=== PATIENT | female | born 2005 | race Caucasian/White ===

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

== ENCOUNTER → 2023-03-22 | Outpatient (CLI) | payer MEDICAID ==
[~2023-03-22] MED LIST changes: +MACROBID100 M1 PO
[2023-03-22 12:28] LABS: BASO # 0.1 10*3/uL (0.0-0.1); BASO % 1.1 % (0.0-1.0); EOS # 0.1 10*3/uL (0.0-0.4); EOS % 1.1 % (1.0-4.0); HEMATOCRIT 39.5 % (37.0-47.0); LYMPH # 1.7 10*3/uL (1.3-4.4); LYMPH % 35.2 % (27.0-41.0); MEAN CELL VOLUME 87.6 fl (81.0-99.0); MEAN CORPUSCULAR HGB CONC 33.2 g/dl (33.0-37.0); MEAN PLATELET VOLUME 9.5 fl (9.6-12.3); MONO # 0.3 10*3/uL (0.1-1.0); NEUT # 2.6 10*3/uL (2.3-7.9); NEUT % 55.4 % (47.0-73.0); PLATELET COUNT AUTOMATED 254 10*3/uL (130-400); RED BLOOD COUNT 4.51 10*6/uL (4.10-5.10); RED CELL DISTRI WIDTH 12.5 % (0-14.5); WHITE BLOOD COUNT 4.7 10*3/uL (4.8-10.8)
[2023-03-22 12:52] LABS: ALKALINE PHOSPHATASE 76 U/L (46-116); BUN 7 mg/dl (9-23); CHLORIDE 107 mmol/L (98-107); POTASSIUM 3.7 mmol/L (3.4-5.1); SGPT/ALT 8 U/L (10-49); TOTAL PROTEIN 7.3 gm/dL (6.0-8.0)
== END | disposition home or self-care (01) ==
LOC: LAB 11:55
PROVIDERS: ATTEND Nurse Practitioner
DX: F41.9 Anxiety disorder, unspecified (principal); L65.9 Nonscarring hair loss, unspecified

== ENCOUNTER 2025-05-15 20:26 | Emergency (ER) | payer BC ==
[~2025-05-15] VITALS: Ht 160 cm; Wt 59.0 kg
[2025-05-15] MEDS ORDERED: LEVOTHYROXINE50 MCG PO (20:43)
[2025-05-15] MEDS ORDERED: SPRINTEC 28 DA1 EAC1 PO (20:44)
[2025-05-15] MEDS ORDERED: MAGNESIUM CITRATE 296 ML BOT PO ONE (23:20)
== END 2025-05-15 23:29 | disposition home or self-care (01) ==
LOC: ED 20:26
DX: K59.00 Constipation, unspecified (principal); E03.9 Hypothyroidism, unspecified; F41.9 Anxiety disorder, unspecified; Z79.899 Other long term (current) drug therapy

== ENCOUNTER 2025-07-22 22:56 | Emergency (ER) | payer BC ==
[~2025-07-22] VITALS: Ht 160 cm; Wt 54.4 kg
[~2025-07-22 22:56] MED LIST changes: +LEVOTHYROXINE50 MCG PO; +SPRINTEC 28 DA1 EAC1 PO
[2025-07-22 23:44] LABS: BILIRUBIN Negative (Negative); BLOOD 3+ (Negative); CLARITY Cloudy (Clear); COLOR Yellow (Yellow); KETONE Trace (Negative); LEUKO ESTERASE 2+ (Negative); NITRITE Negative (Negative); PH 5.5 (4.5-8.0); SPECIFIC GRAVITY 1.020 (1.001-1.030); UROBILINOGEN 1.0 E.U./dl (0.0-1.0)
[2025-07-22 23:52] LABS: BACTERIA 2+; EPITHELIAL CELLS 21-30; RBC 16-20 rbc/hpf (0-2); WBC 21-30 wbc/hpf (0-5)
[2025-07-23] MEDS ORDERED: AZITHROMYCIN 250 MG TAB PO ONE (00:30)
[2025-07-23] MEDS ORDERED: Water, Sterile 10 ML VIAL ONE (01:03)
== END 2025-07-23 01:04 | disposition home or self-care (01) ==
LOC: ED 22:56
PROVIDERS: Internal Medicine
DX: N89.8 Other specified noninflammatory disorders of vagina (principal); R10.20 Pelvic and perineal pain unspecified side; Z20.2 Contact with and (suspected) exposure to infections with a predominantly sexual mode of transmission